=== PATIENT | female | born 1970 | race Caucasian/White ===

== ENCOUNTER 2017-02-22 10:54 | Day surgery (SDC) | payer OTHER ==
[~2017-02-22] VITALS: Ht 162.6 cm; Wt 95.1 kg
[~2017-02-22 10:54] MED LIST: BALANCE B-501 EAC1 PO; IRON325 M1 PO; SYNTHROID25 MCG PO; VITAMIN D31000 UNI2 PO
[2017-02-22 11:34] LABS: EOSINOPHIL COUNT 0.2 K/uL (0-0.3); HEMATOCRIT 40.9 % (36.0-46.0); IMMATURE GRANULOCYTE (%) 0.5 % (0.0-0.7); INSTRUMENT ABS NEUTROPHIL CT 5.1 K/uL; LYMPHOCYTE COUNT 1.8 K/uL (1.0-2.8); MCH 26.6 PG (29.0-34.0); MCV 83.1 FL (83-99); MONOCYTE (%) 7.3 % (3-12); MONOCYTE COUNT 0.6 K/uL (0-0.8); NEUTROPHIL COUNT 5.1 K/uL (1.8-6.4); PLATELET COUNT 252 K/uL (156-360); RBC DIS.WIDTH-CV 13.1 % (11.8-14.6); RBC DIS.WIDTH-SD 39.7 % (39-53); RED BLOOD COUNT 4.92 M/uL (3.80-5.20); WHITE BLOOD COUNT 7.8 K/uL (4.1-10.2)
[2017-02-22 11:41] VITALS: BP 142/73
[2017-02-22 11:48] LABS: CHLORIDE 104 mEq/L (99-109); SODIUM 140 mEq/L (136-147)
[2017-02-22 11:50] LABS: GLUCOSE 125 mg/dL (70-99)
[2017-02-22 11:52] LABS: ANION GAP 11 MEQ/L (2-14); TOTAL BILIRUBIN 0.5 mg/dL (0.0-1.0)
[2017-02-22 11:54] LABS: ALKALINE PHOSPHATASE 68 IU/L (3-129); GFR ESTIMATE (CALCULATED) > 59 mL/min/
[2017-02-22 11:55] LABS: UREA NITROGEN (BUN) 10 mg/dL (9-23)
[2017-02-22 12:06] LABS: QUANTITATIVE HCG < 4.0 MIU/ML
[2017-02-22 15:26] LABS: EOSINOPHIL (%) 2.2 % (0-5); EOSINOPHIL COUNT 0.3 K/uL (0-0.3); HEMATOCRIT 33.6 % (36.0-46.0); IMMATURE GRANULOCYTE (%) 0.8 % (0.0-0.7); IMMATURE GRANULOCYTE COUNT 0.1 K/uL; INSTRUMENT ABS NEUTROPHIL CT 9.3 K/uL; LYMPHOCYTE COUNT 2.6 K/uL (1.0-2.8); MCH 26.5 PG (29.0-34.0); MCHC 32.1 G/DL (30.0-36.0); MCV 82.6 FL (83-99); MEAN PLAT.VOLUME 10.9 uM^3 (9.5-12.4); MONOCYTE (%) 4.8 % (3-12); MONOCYTE COUNT 0.6 K/uL (0-0.8); NEUTROPHIL (%) 71.9 % (45-76); NEUTROPHIL COUNT 9.3 K/uL (1.8-6.4); PLATELET COUNT 272 K/uL (156-360); RBC DIS.WIDTH-CV 13.2 % (11.8-14.6); RBC DIS.WIDTH-SD 39.7 % (39-53); RED BLOOD COUNT 4.07 M/uL (3.80-5.20)
[2017-02-22 17:53] LABS: HEMATOCRIT 35.8 % (36.0-46.0); MCV 85.2 FL (83-99)
[2017-02-22 20:19] VITALS: BP 117/69
[2017-02-22 23:04] VITALS: BP 114/68
[2017-02-23 03:32] VITALS: BP 102/58
[2017-02-23 07:02] VITALS: BP 118/61
[2017-02-23 07:15] LABS: ANION GAP 4 MEQ/L (2-14); CHLORIDE 106 MEQ/L (99-109); GFR ESTIMATE (CALCULATED) > 59 mL/min/; GLUCOSE 149 mg/dL (70-99); POTASSIUM 4.1 MEQ/L (3.7-5.4); SAMPLE HEMOLYSIS CHECK 0; SAMPLE ICTERIC CHECK 0; SAMPLE LIPEMIA CHECK 0; SODIUM 135 MEQ/L (136-147); UREA NITROGEN (BUN) 9 mg/dL (9-23)
[2017-02-23 07:20] LABS: EOSINOPHIL (%) 0 % (0-5); HEMATOCRIT 28.5 % (36.0-46.0); IMMATURE GRANULOCYTE (%) 0.6 % (0.0-0.7); IMMATURE GRANULOCYTE COUNT 0.1 K/uL; INSTRUMENT ABS NEUTROPHIL CT 11.5 K/uL; LYMPHOCYTE COUNT 1.4 K/uL (1.0-2.8); MCH 27.8 PG (29.0-34.0); MCHC 33.7 G/DL (30.0-36.0); MCV 82.6 FL (83-99); MEAN PLAT.VOLUME 10.9 uM^3 (9.5-12.4); MONOCYTE (%) 10.6 % (3-12); MONOCYTE COUNT 1.5 K/uL (0-0.8); NEUTROPHIL (%) 79.3 % (45-76); NEUTROPHIL COUNT 11.5 K/uL (1.8-6.4); PLATELET COUNT 194 K/uL (156-360); RBC DIS.WIDTH-CV 13.2 % (11.8-14.6); RBC DIS.WIDTH-SD 40.1 % (39-53); RED BLOOD COUNT 3.45 M/uL (3.80-5.20); WHITE BLOOD COUNT 14.5 K/uL (4.1-10.2)
[2017-02-23 11:01] VITALS: BP 126/64
[2017-02-23] MEDS ORDERED: IBUPROFEN800 MG PO (12:11)
[2017-02-23] MEDS ORDERED: DOCUSATE SODIU100 MG PO (12:11)
[2017-02-23] MEDS ORDERED: ENDOCET 5-3251 EACH PO (12:11)
[2017-02-23] MEDS ORDERED: BACTRIM,SEPT1 TABLET PO (12:14)
== END 2017-02-23 16:14 | disposition home or self-care (01) ==
LOC: SDC 10:54 → 2SOUTH 18:07 → 2EAST 18:07 → 2SOUTH 18:07 → ENRESERV 18:09 → 2EAST 19:56
PROVIDERS: Nurse Anesthetist, Certified Registered; Obstetrics & Gynecology
DX: N92.0 Excessive and frequent menstruation with regular cycle (principal); N39.3 Stress incontinence (female) (male); N80.0 Endometriosis of uterus; D25.9 Leiomyoma of uterus, unspecified; N99.61 Intraoperative hemorrhage and hematoma of a genitourinary system organ or structure complicating a genitourinary system procedure
CPT/HCPCS: 80048; 80053; 84702; 85014; 85018; 85025; 85025 91; 85027; 85384; 86900; 86901; 86920; 88307; C1771; G0378; J0330; J0690; J1100; J1170; J1885; J2250; J2405; J2710; J2765; J3010; J7120; P9016; S0020